=== PATIENT | male | born 1945 | race Caucasian/White ===

== ENCOUNTER 2020-07-10 12:43 | Outpatient (RCR) | payer MEDICARE, SELFPAY ==
[2020-07-10] MEDS: COVID-19 VACC, MRNA(PFIZER)/PF 30 MCG/0.3 ML SYRINGE IM (11:26)
[2020-07-31] MEDS: COVID-19 VACC, MRNA(PFIZER)/PF 30 MCG/0.3 ML SYRINGE IM (10:52)
== END 2020-10-09 23:59 ==
LOC: IMMUN 12:43
PROVIDERS: PCP Family Medicine Geriatric Medicine; Visit Provider Family Medicine
DX: Z23 Encounter for immunization (principal)
CPT/HCPCS: 0001A; 0002A; 91300

== ENCOUNTER → 2022-02-06 | Outpatient (CLI) | payer MEDICARE, SELFPAY ==
--- NOTE | 2022-02-06 12:55 | CDU_ITS ---
Reason For Study: carotid stenosis Rt. Velocities/BP Lt. Velocities/BP Prox CCA 97.1/12.4 cm/sec. Prox CCA 105.8/13.5 cm/sec. Mid CCA 78.4/12.4 cm/sec. Mid CCA 90.5/14.6 cm/sec. Dist CCA 82.8/9.1 cm/sec. Dist CCA 91.6/12.4 cm/sec. Prox ICA 267.7/50.0 cm/sec. Prox ICA 143.0/24.3 cm/sec. Mid ICA 265.1/42.2 cm/sec. Mid ICA 124.7/24.3 cm/sec. Dist ICA 208.1/29.3 cm/sec. Dist ICA 104.7/27.4 cm/sec. Rt. ICA/CCA = 3.4. Lt. ICA/CCA = 1.6. Prox ECA 165.3/7.2 cm/sec. Prox ECA 108.0/10.2 cm/sec. Rt. Vert. 63.0/12.4 cm/sec. Lt. Vert. 54.4/7.7 cm/sec. Right Extracranial There is homogeneous, smooth atherosclerotic plaque noted in the right common carotid artery. There is heterogeneous, smooth atherosclerotic plaque noted in the right internal carotid artery. There is homogeneous, smooth atherosclerotic plaque noted in the right external carotid artery. Antegrade flow is noted in the right vertebral artery. Left Extracranial There is homogeneous, smooth atherosclerotic plaque noted in the left common carotid artery. There is heterogeneous, irregular atherosclerotic plaque noted in the left internal carotid artery. There is homogeneous, smooth atherosclerotic plaque noted in the left external carotid artery. Antegrade flow is noted in the left vertebral artery. Procedure Carotid Duplex [id number]. This is a Carotid Duplex examination using B-mode, color flow and specral Doppler. The exam was diagnostic. Exam performed in department. VL/Carotid Duplex Ultrasound Interpretation Summary Severe (>70%) stenosis right extracranial internal carotid. Moderate (50-69%) stenosis left extracranial internal carotid. Patent and antegrade vertebrals bilaterally. Ordering Physician: Terrence Young Performed By: Nikita Bustillos RVT
== END | disposition home or self-care (01) ==
PROVIDERS: PCP Family Medicine Geriatric Medicine; Visit Provider Surgery Trauma Surgery
DX: I65.23 Occlusion and stenosis of bilateral carotid arteries (principal)
CPT/HCPCS: 93880

== ENCOUNTER → 2022-08-18 | Outpatient (CLI) | payer MEDICARE, SELFPAY ==
--- NOTE | 2022-08-18 09:26 | CDU_ITS ---
Reason For Study: Carotid Stenosis Rt. Velocities/BP Lt. Velocities/BP Prox CCA 104/10 cm/sec. Prox CCA 125/16 cm/sec. Mid CCA 68/8 cm/sec. Mid CCA 79/13 cm/sec. Dist CCA 80/12 cm/sec. Dist CCA 84/14 cm/sec. Prox ICA 95/7 cm/sec. Prox ICA 155/21 cm/sec. Mid ICA 299/28 cm/sec. Mid ICA 149/30 cm/sec. Dist ICA 138/18 cm/sec. Dist ICA 104/30 cm/sec. Rt. ICA/CCA = 4.4. Lt. ICA/CCA = 1.9. Prox ECA 199 cm/sec. Prox ECA 106/7 cm/sec. Rt. Vert. 89/12 cm/sec. Lt. Vert. 60/9 cm/sec. Right Extracranial There is heterogeneous, smooth atherosclerotic plaque noted in the right common carotid artery. There is heterogeneous, irregular atherosclerotic plaque noted in the right internal carotid artery. There is homogeneous, irregular atherosclerotic plaque noted in the right external carotid artery. Antegrade flow is noted in the right vertebral artery. Left Extracranial There is heterogeneous, smooth atherosclerotic plaque noted in the left common carotid artery. There is heterogeneous, irregular atherosclerotic plaque noted in the left internal carotid artery. There is heterogeneous, smooth atherosclerotic plaque noted in the left external carotid artery. Antegrade flow is noted in the left vertebral artery. Procedure Carotid Duplex [id number]. This is a Carotid Duplex examination using B-mode, color flow and specral Doppler. Exam performed in department. VL/Carotid Duplex Ultrasound Interpretation Summary Severe (>70%) stenosis right extracranial internal carotid. Moderate (50-69%) stenosis left extracranial internal carotid. Patent and antegrade vertebrals bilaterally. Ordering Physician: Terrence Young Referring Physician: Yan Mtz Performed By: Rosa Prasad, RDCS, RVT
== END | disposition home or self-care (01) ==
PROVIDERS: PCP Family Medicine Geriatric Medicine; Referring Provider Surgery Trauma Surgery; Visit Provider Surgery Trauma Surgery
DX: I65.23 Occlusion and stenosis of bilateral carotid arteries (principal)
CPT/HCPCS: 93880

== ENCOUNTER → 2022-09-24 | Outpatient (CLI) | payer MEDICARE, SELFPAY ==
--- NOTE | 2022-09-24 13:46 | CT_ITS ---
INDICATION: right carotid stenosis EXAMINATION: CTA Head and Neck W/ Contrast Injection (and W/O Contrast Images if performed) TECHNIQUE: Routine unenhanced CT brain performed then CTA of the head and neck was performed with post processing of the angiographic images for volumetric reconstructions. In addition, images were obtained of the [place] [facility] [place]. [place] criteria using the distal ICAs for comparison were used for evaluation of stenoses. 2-D and 3-D reconstructions were reviewed. A radiation dose optimization technique was used for this scan. IV Contrast dosage and agent: 100 cc [id number] COMPARISON: No relevant comparison imaging received. FINDINGS: --BRAIN (unenhanced): No intracranial hemorrhage, mass effect, midline shift or evidence of acute major territorial infarct. Chronic right gangliocapsular infarct present. Mild bilateral deep cerebral white matter lucencies. Chronic cerebral involutional changes. Normal ventricles with no hydrocephalus. Intracranial atherosclerotic calcifications. Mild scattered sinus mucosal thickening. Punctate radiopaque foreign body located just below skin surface left infraorbital region. Postop cataract surgery bilaterally. Mastoid air cells are well-pneumatized. Calvarium is intact. --NECK: AORTIC ARCH AND BRANCHES: Atherosclerotic plaque with no aneurysm, dissection, occlusion or significant stenosis. RIGHT CCA: No occlusion, significant stenosis or dissection. Mild atherosclerotic plaque at bifurcation. RIGHT ICA: No occlusion or dissection. Focal short segment stenosis proximally resulting in no more than 50% stenosis. LEFT CCA: No occlusion, significant stenosis or dissection. Mild generalized atherosclerotic plaque. LEFT ICA: No occlusion, significant stenosis or dissection. Atherosclerotic plaque with mild stenosis proximally (less than 50%). RIGHT VERTEBRAL ARTERY: No occlusion, significant stenosis or dissection. Dominant right vertebral artery. LEFT VERTEBRAL ARTERY: No occlusion, significant stenosis or dissection. NECK SOFT TISSUES: No acute findings. LUNG APICES: Biapical lung scarring with centrilobular emphysematous changes. BONES: Multilevel degenerative changes along spine with no acute osseous abnormality. --HEAD: --Anterior circulation: ICAs: Mild calcified plaque bilaterally but no occlusion or significant stenosis. ACAs: No significant stenosis at the visualized segments. ACOM: Present. MCAs: No significant stenosis at the visualized segments. --Posterior circulation: PCOMs: Faintly visualized small remnants bilaterally. decaler: No significant stenosis at the visualized segments. BASILAR ARTERY: No significant stenosis. Basilar artery is supplied by right vertebral artery. VERTEBRAL ARTERIES: Dominant and patent right vertebral artery with no significant stenosis. 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 No evidence of intracranial aneurysm or vascular malformation. CT/CTA Head AND Neck W/ Contrast IMPRESSION: 1. Cerebral atrophy and chronic small vessel ischemic changes but no evidence of acute intracranial abnormality. 2. No acute arterial occlusive disease. 3. Atherosclerotic plaque with moderate stenosis proximal right internal carotid artery. Mild stenosis left ICA and bilateral common carotid arteries. 4. 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 Basilar artery is supplied by right vertebral artery. 5. Pulmonary emphysema and cervical spondylosis also noted. Electronically Signed: Byron Fox MD at 6:10 EDT ,
[2022-09-24 14:25] LABS: CREATININE FINGERSTICK 1.2 mg/dL (0.70-1.30)
== END | disposition home or self-care (01) ==
LOC: CT 13:46
PROVIDERS: Referring Provider Physician Assistant; Visit Provider Physician Assistant
DX: I65.23 Occlusion and stenosis of bilateral carotid arteries (principal)
CPT/HCPCS: 70496; 70498; Q9967; A4216

== ENCOUNTER → 2023-10-19 | Outpatient (CLI) | payer MEDICARE, SELFPAY ==
--- NOTE | 2023-10-19 09:30 | CDU_ITS ---
Reason For Study: Right carotid stenosis Rt. Velocities/BP Lt. Velocities/BP Prox CCA 86.3/12.6 cm/sec. Prox CCA 106.5/17 cm/sec. Mid CCA 72.1/11.6 cm/sec. Mid CCA 101/17 cm/sec. Dist CCA 62.6/8.8 cm/sec. Dist CCA 90/13.3 cm/sec. Prox ICA 57.5/4.7 cm/sec. Prox ICA 152.1/24.3 cm/sec. Mid ICA 299.4/36.5 cm/sec. Mid ICA 152.1/29.8 cm/sec. Dist ICA 169.2/31.9 cm/sec. Dist ICA 117.4/24.3 cm/sec. Rt. ICA/CCA = 4.15. Lt. ICA/CCA = 1.51. Prox ECA 102.5/2.5 cm/sec. Prox ECA 108.3/7.9 cm/sec. Rt. Vert. 75.4/15.2 cm/sec. Lt. Vert. 60.8/11.5 cm/sec. Right Extracranial There is homogeneous, smooth atherosclerotic plaque noted in the right common carotid artery. There is heterogeneous, irregular atherosclerotic plaque noted in the right internal carotid artery. There is heterogeneous, irregular atherosclerotic plaque noted in the right external carotid artery. Antegrade flow is noted in the right vertebral artery. Left Extracranial There is homogeneous, smooth atherosclerotic plaque noted in the left common carotid artery. There is heterogeneous, irregular atherosclerotic plaque noted in the left internal carotid artery. There is heterogeneous, irregular atherosclerotic plaque noted in the left external carotid artery. Antegrade flow is noted in the left vertebral artery. Procedure This is a Carotid Duplex examination using B-mode, color flow and specral Doppler. Carotid Duplex [id number]. Exam performed in department. VL/Carotid Duplex Ultrasound Interpretation Summary Severe (>70%) stenosis right extracranial internal carotid. Moderate (50-69%) stenosis left extracranial internal carotid. Patent and antegrade vertebrals bilaterally. Ordering Physician: Terrence Young Referring Physician: Wyatt Hart Performed By: Delmi Gonzalez T
== END | disposition home or self-care (01) ==
LOC: CVS 09:29
PROVIDERS: Referring Provider Surgery Trauma Surgery; Visit Provider Surgery Trauma Surgery
DX: I65.23 Occlusion and stenosis of bilateral carotid arteries (principal)
CPT/HCPCS: 93880